=== PATIENT | male | born 1985 | race Caucasian/White ===

== ENCOUNTER 2023-10-06 15:11 | Observation (INO) ==
--- NOTE | 2023-10-06 15:44 | ED Triage Note ---
Date of Service October 06, 2023 Provider in Triage Author: Charles Seay History of Present Illness This patient was briefly evaluated while in triage. An abbreviated physical exam was performed. This patient is a 38-year-old Male who presents to the ED for evaluation of bloody vomitus. Patient reports he did not feel well this morning when he woke up, and became nauseated. Patient went to the bathroom and vomited in the sink, having multiple blood clots. Patient had a small glass of wine last night. He has also taken a few ibuprofen recently for neck pain. Patient denies history of reflux. Physical Exam CONSTITUTIONAL: Healthy and well nourished. HEENT: No scleral icterus or conjunctival injection/pallor. RESPIRATORY: Clear to auscultation bilaterally with no wheezing, crackles, rhonchi or stridor. CARDIOVASCULAR: Regular rate and rhythm with no murmurs, rubs or gallops. GASTROINTESTINAL: No epigastric tenderness to palpation. Bowel sounds are present. MUSCULOSKELETAL: Full range of motion of all joints without discomfort. INTEGUMENTARY: No rash or other significant dermatologic conditions noted. HEMATOLOGIC: No ecchymosis or petechiae. PSYCHIATRIC: Positive affect. NEUROLOGIC: No focal neurologic deficits noted. Initial orders for labs and / or imaging were placed and patient was placed in the waiting area until a bed is available. Please see further documentation for the full ED course.
[2023-10-06] MEDS ORDERED: PANTOprazole 80 MG in DEXTROSE 5% 100 ML IV STA (16:05)
[2023-10-06] MEDS ORDERED: FAMOTIDINE 20MG IV PUSH 20 MG/5 ML SYR IV STA (16:06)
[2023-10-06] MEDS ORDERED: SODIUM CHLORIDE 0.9% 1,000 ML IV SCH (16:15)
[2023-10-06 16:30] LABS: Albumin Globulin Ratio 1.6 (0.9-2); Albumin Level 4.4 gm/dl (3.4-5.0); BUN Creatinine Ratio 24.7 (10-20); Bilirubin,Total 1.2 mg/dl (0.2-1.0); Calcium 9.4 mg/dl (8.6-10.3); Est GFR (African American) 136.4 ml/min; Est GFR (Non-African American) 117.7 ml/min; Globulin 2.7 gm/dl (2.5-4.0); Total Protein 7.1 gm/dl (6.0-8.3)
[2023-10-06 16:31] LABS: Hematocrit (blood only) 41.9 % (42.0-52.0); Hemoglobin 14.6 g/dl (14.0-18.0)
[2023-10-06 16:32] LABS: Mean Corpuscular Hgb Conc 34.8 g/dL (32.0-36.0); RDW Coefficient of Variation 14.6 % (11.5-14.5); RDW Standard Deviation 46.2 fL (36.4-46.3); Red Blood Count 4.87 M/uL (4.70-6.10); White Blood Count 5.93 K/ul (4.8-10.8)
[2023-10-06 16:36] LABS: Basophils # (auto) 0.05 K/uL (0.00-0.20); Basophils % (auto) 0.8 %; Echinocytes 2+; Eosinophils # (auto) 0.15 K/uL (0.00-0.50); Eosinophils % (auto) 2.5 %; Immature Granulocytes # (auto) 0.02 K/uL (0.01-0.20); Immature Granulocytes % (auto) 0.3 %; Lymphocytes # (auto) 1.32 K/uL (1.20-3.40); Lymphocytes % (auto) 22.3 %; Monocytes # (auto) 0.65 K/uL (0.11-0.59); Neutrophils # (auto) 3.74 K/uL (1.40-6.50); Neutrophils % (auto) 63.1 %; Platelet Count 93 K/uL (130-400); Platelet Estimate Decreased (Normal)
[2023-10-06 16:37] LABS: Troponin I High Sensitivity 2.6 pg/ml (0-20)
[2023-10-06 16:40] LABS: INR 1.2 (0.9-1.1); Partial Thromboplastin Time 28 Seconds (21-31)
--- NOTE | 2023-10-06 16:58 | Emergency Department Note ---
Impression & Plan Hematemesis ED Provider Note CHIEF COMPLAINT: Vomiting blood HISTORY OF PRESENT ILLNESS: This 38-year-old male patient on chronic buprenorphine presents to the emergency department with complaints of vomiting blood. The patient states he went to bed in his usual state of health, woke up nauseated earlier this morning. He proceeded to have a loose bowel movement, but does not have any recollection of the color of the stool. He was able to go back to bed for a few hours. Upon awakening around 10 to 11 AM, he suddenly felt nauseated and states his mouth began to water. He rushed to the sink and vomited bright red blood with clots. He denies any blood thinners, states he had 1 glass of wine last night but does not drink regularly. He has been taking ibuprofen for the last several days. REVIEW OF SYSTEMS: A review of systems was performed with positives and pertinent negatives listed in the history of present illness. 10 systems were reviewed and are otherwise negative. ALLERGIES: see below MEDICATIONS: see below PMH: see below SOCIAL HISTORY: see below DDx: Gastric ulcer, esophageal tear, malignancy, cirrhosis of the liver, infectious etiology, esophageal varices, NSAID use, dehydration among others PHYSICAL EXAM: Vital signs reviewed. General: Well-appearing 38-year-old male, in no significant distress. HEENT: No scleral icterus, PERRLA, neck supple. Moist mucous membranes Cardiovascular: Regular rate and rhythm, no extra sounds. Pulmonary: Clear to auscultation bilaterally, normal work of breathing. Abdomen: Soft, nontender, nondistended, positive bowel sounds. Musculoskeletal: Atraumatic, no peripheral edema. Rectal: Guaiac positive brown stool normal external mucosa. No mass appreciated Neurologic: Patient awake alert and oriented x 3, speech is clear Skin: Warm, dry, no rash EMERGENCY DEPARTMENT COURSE/MDM: This patient was evaluated and appeared to be in no significant distress. IV access was obtained and laboratory work was drawn. The patient was placed on the quality assurance monitor chassis and noted to be in a normal sinus rhythm. Stool guaiac is positive. Patient was started on IV Protonix bolus and drip. He was typed and screened. IV fluids were initiated. The patient was felt to be stable with normal vital signs and initial hemoglobin of 14.6. Patient did show a picture of gross hematemesis with clotting. He will be best served with an inpatient admission. Hospitalist service was consulted for further management. Patient is aware of the plan and agrees. MONITORING: An order for cardiac monitoring was placed and the patient is noted to be in a normal sinus rhythm at 75 beats per minute. RADIOLOGY: Chest x-ray to my interpretation reveals no evidence of focal lung consolidation or failure. DISPOSITION: Admission Past Med/Surg History Medical History Tobacco use disorder History of substance abuse Social History Smoking Status: Current every day smoker Tobacco Type: Cigarettes Hx Alcohol Use: Yes Alcohol type: wine Hx Substance Use: Yes Last Used Substance Other:: 6-7 years ago Communication Ability: Effective Beliefs That Will Affect Care: None marital status: Life Partner Current Living Situation: Significant Other Feels Safe at Home: Yes Assistive Devices: None Allergies Allergies Allergy/AdvReac Type Severity Reaction Status Date / Time No Known Allergies Allergy Verified 10/07/23 14:08 Home Meds Home Medications Medication Instructions Recorded Confirmed buprenorphine HCl 8 mg sublingual 8 mg sublingual BID 10/06/23 10/06/23 tablet Previous Rx's Medication Instructions Recorded pantoprazole 40 mg tablet,delayed 40 mg PO BID 30 days #60 tabs 10/07/23 release Results & Data (ED) Vital Signs Vital Signs - 24 hr 10/06/23 15:40 10/06/23 16:00 10/06/23 16:30 Temperature 36.8 C Temperature Source Temporal Artery Scan Pulse Rate 102 H 78 Pulse Rate [Left Apical] 83 Respiratory Rate 18 16 17 Respiratory Effort / Characteristics Non-Labored Spontaneous Non-Labored Respiratory Depth Normal Normal Respiratory Pattern Regular Blood Pressure 124/83 122/75 Blood Pressure [Right Arm] 107/72 Blood Pressure Mean 96 90 Blood Pressure Mean [Right Arm] 83 Pulse Oximetry 97 99 100 Oxygen Delivery Method Room Air Room Air Room Air Sepsis Recent Fever Within 48 Hours No Sepsis New/Unexplained Change in Mental Status N/A Sepsis Action Taken by Nursing No Action Required 10/06/23 16:36 Temperature Temperature Source Pulse Rate 75 Pulse Rate [Left Apical] Respiratory Rate Respiratory Effort / Characteristics Respiratory Depth Respiratory Pattern Blood Pressure Blood Pressure [Right Arm] Blood Pressure Mean Blood Pressure Mean [Right Arm] Pulse Oximetry Oxygen Delivery Method Sepsis Recent Fever Within 48 Hours Sepsis New/Unexplained Change in Mental Status Sepsis Action Taken by Usp Medications Current Medication List: was personally reviewed by me Laboratory Data Attestation: I reviewed the patient's lab results. 10/07/23 09:45 10/07/23 06:23 Lab Results 10/06/23 10/06/23 10/06/23 Range/Units 15:56 16:25 16:58 WBC 5.93 (4.8-10.8) K/ul RBC 4.87 (4.70-6.10) M/uL Hgb 14.6 (14.0-18.0) g/dl Hct 41.9 L (42.0-52.0) % MCV 86.0 (80.0-100.0) fL MCH 30.0 (25.0-34.0) pg MCHC 34.8 (32.0-36.0) g/dL RDW Std Deviation 46.2 (36.4-46.3) fL RDW Coeff of Deborah 14.6 H (11.5-14.5) % Plt Count 93 L (130-400) K/uL MPV 9.0 L (9.4-12.4) fL Immature Gran % (Auto) 0.3 % Neut % (Auto) 63.1 % Lymph % (Auto) 22.3 % [place] % (Auto) 11.0 % Eos % (Auto) 2.5 % Baso % (Auto) 0.8 % Neut # (Auto) 3.74 (1.40-6.50) K/uL Lymph # (Auto) 1.32 (1.20-3.40) K/uL [place] # (Auto) 0.65 H (0.11-0.59) K/uL Eos # (Auto) 0.15 (0.00-0.50) K/uL Baso # (Auto) 0.05 (0.00-0.20) K/uL Immature Gran # (Auto) 0.02 (0.01-0.20) K/uL Platelet Estimate Decreased L (Normal) Echinocytes 2+ PT 13.0 H (9.0-12.0) Seconds INR 1.2 H (0.9-1.1) APTT 28 (21-31) Seconds PTT Ratio 1.0 Sodium 138 (136-145) mmol/L Potassium 4.0 (3.5-5.1) mmol/L Chloride 105 (98-107) mmol/L Carbon Dioxide 26 (21-32) mmol/L Anion Gap 7 (3-11) BUN 18 (6-23) mg/dl Creatinine 0.73 (0.6-1.4) mg/dl Est Cr Clr Drug Dosing 119.0 ml/min Est GFR ( Amer) 136.4 ml/min Est GFR (Non-Af Amer) 117.7 ml/min BUN/Creatinine Ratio 24.7 H (10-20) Glucose 100 H (70-99(Fasting)) mg/dl Calcium 9.4 (8.6-10.3) mg/dl Total Bilirubin 1.2 H (0.2-1.0) mg/dl AST 66 H (13-39) U/L ALT 67 H (7-52) U/L Alkaline Phosphatase 53 (34-104) U/L Troponin I High Sens 2.6 (0-20) pg/ml Total Protein 7.1 (6.0-8.3) gm/dl Albumin 4.4 (3.4-5.0) gm/dl Globulin 2.7 (2.5-4.0) gm/dl Albumin/Globulin Ratio 1.6 (0.9-2) Lipase 33 (11-82) U/L Urine Color Yellow Urine Appearance Clear (Clear) Urine pH 7.0 (4.5-7.5) Ur Specific Mobile 1.010 (1.000-1.030) Urine Protein Negative (Negative) Urine Glucose (UA) Negative (Negative) Urine Ketones Negative (Negative) Urine Blood Trace-intact H (Negative) Urine Nitrite Negative (Negative) Urine Bilirubin Negative (Negative) Urine Urobilinogen Negative (Negative) Ur Leukocyte Esterase Negative (Negative) Urine RBC 0-4 (0-4) /hpf Urine WBC 0-5 (0-5) /hpf Ur Epithelial Cells 0-5 (0-5) /lpf Urine Bacteria Negative (Negative) Hyaline Casts 0-5 (0-5) /lpf Blood Type A Positive Antibody Screen NEGATIVE Administered Medications Discontinued Medications Buprenorphine HCl (Buprenorphine Hcl 8 Mg Subl) 8 mg SL BID [facility] Stop: 11/06/23 08:59 Last Admin: 10/07/23 16:30 Dose: 8 mg Documented By: [facility] Admin: 10/07/23 09:15 Dose: Not Given Documented By: [facility] Pantoprazole Sodium 80 mg/ (Dextrose) 120 mls @ 480 mls/hr IV ONE STA Stop: 10/06/23 16:19 Last Infusion: 10/06/23 16:40 Dose: Infused Documented By: [facility] Admin: 10/06/23 16:16 Dose: 480 mls/hr Documented By: IRVING Sodium Chloride (Nss) 1,000 mls @ 150 mls/hr IV .Q6H40M FREDI Stop: 11/05/23 16:14 Last Infusion: 10/06/23 22:18 Dose: Infused Documented By: [facility] Infusion: 10/06/23 21:00 Dose: 0 mls/hr Documented By: [facility] Admin: 10/06/23 16:15 Dose: 150 mls/hr Documented By: IRVING Famotidine (Pepcid 20mg Iv Push) 20 mg in 5 mls @ 2.5 mls/min IV NOW STA Stop: 10/06/23 16:07 Last Admin: 10/06/23 16:16 Dose: 2.5 mls/min Documented By: IRVING Pantoprazole Sodium 40 mg/ (Dextrose) 100 mls @ 20 mls/hr IV Q5H [facility] Stop: 11/05/23 17:14 Last Infusion: 10/07/23 15:23 Dose: Infused Documented By: [facility] Admin: 10/07/23 12:52 Dose: 8 mg/hr, 20 mls/hr Documented By: [facility] Infusion: 10/07/23 12:52 Dose: Infused Documented By: [facility] Admin: 10/07/23 07:57 Dose: 8 mg/hr, 20 mls/hr Documented By: [facility] Infusion: 10/07/23 07:57 Dose: Infused Documented By: [facility] Admin: 10/07/23 03:18 Dose: 8 mg/hr, 20 mls/hr Documented By: [facility] Infusion: 10/07/23 03:18 Dose: Infused Documented By: [facility] Admin: 10/06/23 22:41 Dose: 8 mg/hr, 20 mls/hr Documented By: [facility] Infusion: 10/06/23 22:41 Dose: Infused Documented By: [facility] Admin: 10/06/23 18:07 Dose: 8 mg/hr, 20 mls/hr Documented By: MEHRAN Lactated Ringer's (Lr) 1,000 mls @ 125 mls/hr IV .Q8H [facility] Stop: 11/05/23 19:59 Last Admin: 10/07/23 12:54 Dose: 125 mls/hr Documented By: Infusion: 10/07/23 12:54 Dose: Infused Documented By: Admin: 10/07/23 05:43 Dose: 125 mls/hr Documented By: Infusion: 10/07/23 05:00 Dose: Infused Documented By: Admin: 10/06/23 21:00 Dose: 125 mls/hr Documented By: KARLA Lidocaine HCl (Lidocaine 2% 2 Ml Vial/Amp(20mg/Ml)) Confirm Administered Dose 2 ml INFIL .STK-MED ONE Stop: 10/07/23 14:49 Last Admin: 10/07/23 16:09 Dose: Not Given Documented By: SHARRI Midazolam HCl (Midazolam Hcl 1 Mg/Ml 2ml Vial) Confirm Administered Dose 2 mg .ROUTE .STK-MED ONE Stop: 10/07/23 14:53 Last Admin: 10/07/23 16:09 Dose: Not Given Documented By: SHARRI Miscellaneous (Remove Nicoderm Patch) 1 each N/A DAILY@0859 [facility] Stop: 11/06/23 08:58 Last Admin: 10/07/23 07:59 Dose: 1 each Documented By: SHARRI Nicotine (Nicotine 14 Mg/24 Hr Patch) 14 mg TD QAM [facility] Stop: 11/05/23 22:00 Last Admin: 10/07/23 07:59 Dose: 14 mg Documented By: Admin: 10/06/23 22:40 Dose: 14 mg Documented By: EDOUARD Ondansetron HCl (Ondansetron Inj 2 Mg/Ml 2 Ml Vial) Confirm Administered Dose 4 mg .ROUTE .STK-MED ONE Stop: 10/07/23 14:49 Last Admin: 10/07/23 16:09 Dose: Not Given Documented By: SHARRI Propofol (Propofol Iv Emulsion 10 Mg/Ml 20 Ml Vial) Confirm Administered Dose 200 mg IV .STK-MED ONE Stop: 10/07/23 14:49 Last Admin: 10/07/23 16:09 Dose: Not Given Documented By: SHARRI Imaging Data Radiologist's Impression: Chest X-Ray 10/06/23 18:57 XR chest 1V portable CLINICAL HISTORY: hematemesis ?air under diaphragm TECHNIQUE: Single frontal radiograph of the chest was obtained. Comparison: None available at the time of this dictation. FINDINGS: No lines and tubes are seen. The cardiomediastinal silhouette is normal. The lungs are clear. No evidence of pleural effusion or pneumothorax. IMPRESSION: No acute chest disease. ACT 112: Negative or not required by law. Electronically signed by: Lico Quach M.D. 10/06/2023 7:59 PM Liver Ultrasound 10/06/23 19:01 Exam(s): US LIVER EXAM: US Abdomen Limited CLINICAL HISTORY: Reason for exam: decreased platelets, elevated LFTs ?liver cirrhosi. TECHNIQUE: Real-time ultrasound of the abdomen with image documentation. COMPARISON: No relevant prior studies available. FINDINGS: Liver: 0.7 x 0.8 cm left hepatic lobe hyperechoic nodule. Common bile duct: Common bile duct wall measures 3.3 cm. IMPRESSION: No acute findings in the visualized abdomen. Electronically signed by: Werner Roy MD 10/07/23 00:51 AM Discharge Plan Visit Data Chief Complaint: Vomiting Stated Complaint: VOMITING BLOOD/CLOTS ED Provider: Daly Pagan Discharge Problem: Hematemesis Patient Disposition: Admitted As Inpatient Condition: Good Discharge Instructions Interventions: ED Discharge Assessment Last Done: 10/06/23 21:41 Discharge Problem: Hematemesis Qualifiers: Nausea presence: with nausea Qualified Code(s): K92.0 - Hematemesis
[2023-10-06 17:13] LABS: Appearance Urine Clear (Clear); Bilirubin Urine Negative (Negative); Blood Urine Trace-intact (Negative); Color Urine Yellow; Glucose Urine UA Negative (Negative); Ketones Urine Negative (Negative); Leukocyte Esterase Urine Negative (Negative); Nitrite Urine Negative (Negative); Protein Urine Negative (Negative); Urobilinogen Urine Negative (Negative)
[2023-10-06 17:23] LABS: Bacteria Urine Negative (Negative); Epithelial Cell Urine 0-5 /lpf (0-5); Hyaline Casts Urine 0-5 /lpf (0-5); RBC Urine 0-4 /hpf (0-4); WBC Urine 0-5 /hpf (0-5)
[2023-10-06] MEDS: PANTOprazole 40 MG in DEXTROSE 5% MINI-B 100 ML IV SCH ×2 (18:07→22:41)
--- NOTE | 2023-10-06 19:06 | History & Physical Report ---
Date of Service October 06, 2023 Assessment & Plan (1) Hematemesis: Plan: Q.6 hourly H&H. Transfusion threshold overnight less than 9 as this would indicate ongoing acute hemorrhage Pantoprazole IV bolus and drip Add octreotide and ceftriaxone if any concern for liver cirrhosis on ultrasound Consult gastroenterology (2) Thrombocytopenia: Plan: Unclear cause on admission. ?DITP due to ibuprofen - no coag changes of concern for DIC (will continue to monitor) US liver as below Monitor plt daily (3) Transaminitis: Plan: Follow-up hepatitis panel ordered by ER Ultrasound liver ordered (4) Tobacco use disorder: Plan: Nicotine patch ordered (5) History of substance abuse: Plan: Prior opiate pain killer use Continue buprenorphine pending stability of hemoglobin - on this for 6-7 years Plan VTE prophylaxis - SCDs Diet - NPO Disposition - observation to med/tele Admission and Anticipated Discharge Date Admission Date: October 06, 2022 History of Present Illness Chief Complaint: Hematemesis Primary Care Provider: NO PCP Rd Majano is a 38-year-old male who presents to the ER with hematemesis. Started about 7 AM this morning when he woke up felt sick to the stomach. He had a large bowel movement, felt better and went back to bed at 7:30. He woke up again around 11 AM feeling fine initially however around 2 to 2:30 PM again felt sick to his stomach and at this time started vomiting initially coffee-ground emesis but tended to bright red blood containing clots. He vomited 4-5 times before he felt like his stomach is empty. His drove him to the ER. He has never had any heartburn, stomach ulcers, gastrointestinal bleeds previously. He smokes 1 pack a day. The last 2 days he has been taking ibuprofen (total 1000 mg 2 days ago and 800 mg yesterday). He also drank a small glass of wine last night and does not normally drink alcohol. Allergies Allergy/AdvReac Type Severity Reaction Status Date / Time No Known Allergies Allergy Unverified 10/06/23 16:48 Home Medications Medication Instructions Recorded Confirmed Type buprenorphine HCl 8 mg sublingual 8 mg sublingual BID 10/06/23 10/06/23 History tablet Past Med/Surg History Medical History Tobacco use disorder History of substance abuse Social History Smoking Status: Current every day smoker Tobacco Type: Cigarettes marital status: Life Partner Feels Safe at Home: Yes Review of Systems Review of Systems: All systems reviewed & are unremarkable except as noted in HPI & below Physical Exam Constitutional: WD/WN, vitals as above Eyes: PERRL, conjunctivae normal, anicteric sclerae ENMT: external ear and nose normal, oropharynx normal Respiratory: normal respiratory effort, lungs clear to auscultation Cardiovascular: RRR, no murmur, no edema Gastrointestinal (Abdomen): normal bowel sounds, soft, nontender, no hepatosplenomegaly Skin: no rashes, warm and dry Neurologic: moves all extremities and awake; not confused Psychiatric: A+Ox3, euthymic affect Results & Data Results & Data Vital Signs (Past 12 Hours) Vital Signs Temp Pulse Pulse Resp BP BP Pulse Ox 10/06/23 17:00 74 20 129/67 99 10/06/23 16:36 75 10/06/23 16:30 78 17 122/75 100 10/06/23 16:00 83 16 107/72 99 10/06/23 15:40 36.8 C 102 H 18 124/83 97 O2 Del Method 10/06/23 17:00 Room Air 10/06/23 16:36 10/06/23 16:30 Room Air 10/06/23 16:00 Room Air 10/06/23 15:40 Room Air Laboratory Results Abnormal lab results 10/06/23 10/06/23 Range/Units 15:56 16:58 Hct 41.9 L (42.0-52.0) % RDW Coeff of Deborah 14.6 H (11.5-14.5) % Plt Count 93 L (130-400) K/uL MPV 9.0 L (9.4-12.4) fL [place] # (Auto) 0.65 H (0.11-0.59) K/uL Platelet Estimate Decreased L (Normal) PT 13.0 H (9.0-12.0) Seconds INR 1.2 H (0.9-1.1) BUN/Creatinine Ratio 24.7 H (10-20) Glucose 100 H (70-99(Fasting)) mg/dl Total Bilirubin 1.2 H (0.2-1.0) mg/dl AST 66 H (13-39) U/L ALT 67 H (7-52) U/L Urine Blood Trace-intact H (Negative) Diagnostic Findings XR chest 1V portable CLINICAL HISTORY: hematemesis ?air under diaphragm TECHNIQUE: Single frontal radiograph of the chest was obtained. Comparison: None available at the time of this dictation. FINDINGS: No lines and tubes are seen. The cardiomediastinal silhouette is normal. The lungs are clear. No evidence of pleural effusion or pneumothorax. IMPRESSION: No acute chest disease. Medications Administered ER medications given: Pantoprazole 80 mg IV bolus and 8 mg/h drip Code Status & VTE Plan Code Status Full VTE Prophylaxis Plan VTE Prophylaxis will be ordered: No Reason for no VTE drug order: Contraindicated PG Care Time/CCT Total # of Minutes Spent Total Time Spent with Patient: Total time spent is greater than 50% in coordination of care (as documented) at patient's floor/unit and/or counseling patient: Coding Level of Care Code 17419 INT INP/OBS CARE 2/55MIN Diagnoses Hematemesis K92.0 Thrombocytopenia D69.6 Transaminitis R74.01 Tobacco use disorder F17.200 History of substance abuse F19.11
--- NOTE | 2023-10-06 20:00 | XRay Report ---
XR chest 1V portable CLINICAL HISTORY: hematemesis ?air under diaphragm TECHNIQUE: Single frontal radiograph of the chest was obtained. Comparison: None available at the time of this dictation. FINDINGS: No lines and tubes are seen. The cardiomediastinal silhouette is normal. The lungs are clear. No evid ence of pleural effusion or pneumothorax. IMPRESSION: No acute chest disease. ACT 112: Negative or not required by law. Electronically signed by: Lico Quach M.D. 10/06/2023 7:59 PM
[2023-10-06] MEDS: LACTATED RINGER'S 1,000 ML IV SCH (21:00)
[2023-10-06] MEDS ORDERED: ACETAMINOPHEN 1,000 MG/100 ML VIAL IV PRN (22:01)
[2023-10-06] MEDS ORDERED: ONDANSETRON INJ 2 MG/ML 2 ML VIAL IV PRN (22:01)
[2023-10-06] MEDS: NICOTINE 14 MG/24 HR PATCH TD SCH (22:40)
[2023-10-06 23:20] LABS: Hematocrit (blood only) 38.8 % (42.0-52.0); Hemoglobin 13.5 g/dl (14.0-18.0)
--- NOTE | 2023-10-07 00:52 | Ultrasound Report ---
Exam(s): US LIVER EXAM: US Abdomen Limited CLINICAL HISTORY: Reason for exam: decreased platelets, elevated LFTs ?liver cirrhosi. TECHNIQUE: Real-time ultrasound of the abdomen with image documentation. COMPARISON: No relevant prior studies available. FINDINGS: Liver: 0.7 x 0.8 cm left hepatic lobe hyperechoic nodule. Common bile duct: Common bile duct wall measures 3.3 cm. IMPRESSION: No acute findings in the visualized abdomen. Electronically signed by: Werner Roy MD 10/07/23 00:51 AM
[2023-10-07] MEDS: PANTOprazole 40 MG in DEXTROSE 5% MINI-B 100 ML IV SCH ×3 (03:18→12:52)
[2023-10-07] MEDS: LACTATED RINGER'S 1,000 ML IV SCH ×2 (05:43→12:54)
[2023-10-07 07:28] LABS: Albumin Globulin Ratio 1.9 (0.9-2); Albumin Level 3.8 gm/dl (3.4-5.0); Bilirubin,Total 1.5 mg/dl (0.2-1.0); Calcium 9.4 mg/dl (8.6-10.3); Est GFR (Non-African American) 124.2 ml/min; Potassium 3.9 mmol/L (3.5-5.1); Total Protein 5.8 gm/dl (6.0-8.3)
[2023-10-07 07:48] LABS: INR 1.2 (0.9-1.1); Partial Thromboplastin Time 29 Seconds (21-31); Prothrombin Time 13.3 Seconds (9.0-12.0)
[2023-10-07] MEDS: NICOTINE 14 MG/24 HR PATCH TD SCH (07:59)
--- NOTE | 2023-10-07 08:07 | Hospitalist Progress Note ---
Date of Service October 07, 2023 Assessment & Plan (1) Hematemesis: Plan: Hemoglobin 14.6 to 12.6 over the past 24 hours. Q.6 hourly H&H. Pantoprazole IV bolus and drip Consult gastroenterology; plan for EGD today (2) Thrombocytopenia: Plan: Unclear cause on admission. ?DITP due to ibuprofen - no coag changes of concern for DIC (will continue to monitor) US liver with 0.7 x 0.8 cm left hepatic lobe hyperechoic nodule. Monitor plt daily (3) Transaminitis: Plan: Follow-up hepatitis panel ordered by ER Ultrasound liver as per above Continue to trend (4) Tobacco use disorder: Plan: Nicotine patch ordered (5) History of substance abuse: Plan: Prior opiate pain killer use Continue buprenorphine pending stability of hemoglobin - on this for 6-7 years Plan VTE prophylaxis - SCDs Diet - NPO pending GI consult Admission and Anticipated Discharge Date Admission Date: October 06, 2023 Subjective Pt seen at bedside this morning. Overall doing well. No further episodes of hematemesis. Denies nausea, abdominal pain, melena. Had a BM this morning. Review of Systems Review of Systems: As per above Physical Exam Physical Exam: Constitutional: well-appearing, no acute distress HEENT: NCAT, no conjunctival injection CV: regular rhythm, no murmur appreciated, extremities well-perfused, no LE edema Resp: CTABL, no wheezes/rales/rhonchi appreciated, no increased work of breathing GI: soft, nondistended, nontender, BS normoactive MSK: no gross deformities appreciated Skin: warm, dry, no rash appreciated Neuro: alert, oriented, no focal neurologic deficit appreciated Results & Data Results & Data Vital Signs (Past 12 Hours) Vital Signs Temp Pulse Pulse Resp BP BP BP 10/07/23 07:23 36.7 C 76 18 119/66 10/07/23 03:27 37.2 C 83 18 115/49 L 10/07/23 00:44 10/06/23 22:10 37.2 C 73 18 122/69 10/06/23 22:01 37.2 C 73 18 122/69 10/06/23 21:30 79 15 10/06/23 20:59 69 16 121/66 10/06/23 20:27 68 Pulse Ox O2 Del Method 10/07/23 07:23 98 Room Air 01/29/24 03:27 98 Room Air 10/07/23 00:44 Room Air 10/06/23 22:10 98 Room Air 10/06/23 22:01 98 Room Air 10/06/23 21:30 98 Room Air 10/06/23 20:59 99 Room Air 10/06/23 20:27 Resident Activity Tracking Resident Involvement: Resident Care Provided Care Provided: Adult [facility] Medicine
[2023-10-07] MEDS: buprenorphine HCL 8 MG SUBL SL SCH ×2 (09:15→16:30)
--- NOTE | 2023-10-07 09:41 | Gastrointestinal Consultation ---
Date of Consultation October 07, 2023 Assessment & Plan (1) Hematemesis: Patient admitted with c/o of hematemesis that came on suddenly yesterday in the setting of ibuprofen use. hgb 13.5. Patient wishes to proceed with an EGD to further evaluate. Discussed case with Dr. Muhammda who advised on plan. - Will perform EGD today. - follow hgb/hct and transfuse as needed. - continue protonix drip. Supervising Physician Co-Signing Physician Notes Agree with IRAIDA Shukla as above Abd: Soft, NT, ND, +BS Continue current therapy and supportive care Proceed with EGD now History of Present Illness Reason for Consultation: hematemesis Requesting Physician: Ciro Vaughan MD Attending Physician: Werner Good DO History of Present Illness Patient is a 38 year old male who presented to the ED yesterday after he had about 5 episodes of significant hematemesis at home. He had some stomach pain earlier that day but it was resolved with moving his bowels. He did not appreciate any melena but admits he did not look at his stool. He tells me stool is at baseline. He tells me that in the 48 hours preceding this he had used a significant amount of ibuprofen for neck pain that he was having and he did have a glass of wine. He smokes 1 ppd. His hgb upon presentation was 14.6 and had dropped down to 13.5. Since admission he has not had any further vomiting. Patient denies any current issues with nausea, dysphagia, heartburn, abdominal pain, unintentional weight loss, or bright red blood per rectum. he has never had an EGD or Colonoscopy. Allergies Allergy/AdvReac Type Severity Reaction Status Date / Time No Known Allergies Allergy Verified 10/07/23 14:08 Home Medications Medication Instructions Recorded Confirmed Type buprenorphine HCl 8 mg sublingual 8 mg sublingual BID 10/06/23 10/06/23 History tablet Patient History Medical History Tobacco use disorder History of substance abuse Social History Smoking Status: Current every day smoker Tobacco Type: Cigarettes Hx Alcohol Use: Yes Alcohol type: wine Hx Substance Use: Yes Last Used Substance Other:: 6-7 years ago Communication Ability: Effective Beliefs That Will Affect Care: None marital status: Life Partner Current Living Situation: Significant Other Feels Safe at Home: Yes Assistive Devices: None Review of Systems Review of Systems: All systems reviewed & are unremarkable except as noted in HPI & below Physical Exam Constitutional: WD/WN, vitals as above Respiratory: normal respiratory effort, lungs clear to auscultation Cardiovascular: RRR, no murmur, no edema Gastrointestinal (Abdomen): normal bowel sounds, soft, nontender, no hepatosplenomegaly Skin: no rashes, warm and dry Psychiatric: Orientation: alert and oriented x 3 Affect: euthymic affect Results & Data Vital Signs (Past 12 Hours) Vital Signs Temp Pulse Resp BP BP Pulse Ox O2 Del Method 10/07/23 07:23 98.1 F 76 18 119/66 98 Room Air 10/07/23 03:27 99.0 F 83 18 115/49 L 98 Room Air 10/07/23 00:44 Room Air 10/06/23 22:10 99.0 F 73 18 122/69 98 Room Air 10/06/23 22:01 99.0 F 73 18 122/69 98 Room Air PG Care Time/CCT Total # of Minutes Spent Total Time Spent with Patient: Total time spent is greater than 50% in coordination of care (as documented) at patient's floor/unit and/or counseling patient: Coding Level of Care Code 42020 OFFICE CONSULT LVL M Diagnoses Hematemesis K92.0 Time Spent (min) 45
--- NOTE | 2023-10-07 09:46 | Electrocardiogram Report ---
Test Reason : Blood Pressure : / mmHG Vent. Rate : 066 BPM Atrial Rate : 066 BPM P-R Int : 142 ms QRS Dur : 098 ms QT Int : 436 ms P-R-T Axes : 060 049 030 degrees QTc Int : 457 ms Normal sinus rhythm RSR' or QR pattern in V1 suggests right ventricular conduction delay Borderline ECG No previous ECGs available Confirmed by Bernard Mccoy ([id number]) on 10/07/2023 9:45:28 AM Referred By: REFERRED SELF Confirmed By:Bernard Mccoy
[2023-10-07 10:01] LABS: Hematocrit (blood only) 36.2 % (42.0-52.0); Hemoglobin 12.6 g/dl (14.0-18.0)
--- NOTE | 2023-10-07 14:16 | Anesthesiology Consultation ---
Date of Service October 07, 2023 Assessment & Plan Chart Review Chart Review: Acceptable Risk for Surgery Consults Requested none ASA ASA3 Proposed Anesthesia Anesthesia Type: General and MAC Risk / Benefits Reviewed With: PT / POA / Parent / Guardian, Accepts Plan and Informed Consent Obtained History Surgery Operation Date: 10/07/23 17:15 Proposed Procedures p Esophagogastroduodenoscopy Dr Muhammad - Shon Muhammad, DO Height/Weight Height: 5 ft 11 in Weight: 63.7 kg Allergies Allergy/AdvReac Type Severity Reaction Status Date / Time No Known Allergies Allergy Verified 10/07/23 14:08 Medications Home Medications Medication Instructions Recorded Confirmed Last Taken buprenorphine HCl 8 mg sublingual 8 mg sublingual BID 10/06/23 10/06/23 10/06/23 tablet Active Medications Generic Name Dose Route Start Last Admin Trade Name Freq PRN Reason Stop Dose Admin Buprenorphine HCl 8 mg 10/07/23 09:00 10/07/23 09:15 Buprenorphine Hcl 8 Mg Subl SL 11/06/23 08:59 Not Given BID FREDI Pantoprazole Sodium 40 mg/ 100 mls @ 20 mls/hr 10/06/23 17:15 10/07/23 12:52 Dextrose IV 11/05/23 17:14 8 mg/hr Q5H FREDI 20 mls/hr Administration 8 MG/HR Lactated Ringer's 1,000 mls @ 125 mls/hr 10/06/23 20:00 10/07/23 12:54 Lr IV 11/05/23 19:59 125 mls/hr .Q8H FREDI Administration Miscellaneous 1 each 10/07/23 08:59 10/07/23 07:59 Remove Nicoderm Patch N/A 11/06/23 08:58 1 each DAILY@0859 FREDI Administration Nicotine 14 mg 10/06/23 22:01 10/07/23 07:59 Nicotine 14 Mg/24 Hr Patch TD 11/05/23 22:00 14 mg QAM FREDI Administration NPO Date Last Intake of Fluids: 10/06/23 Time Last Intake of Fluids: 00:00 Date Last Intake of Solids: 10/06/23 Time Last Intake of Solids: 00:00 Past Medical History Medical History Tobacco use disorder History of substance abuse Exercise / Class Metabolic Activity II 4-5 Yardwork/Stairs/Walk up hill Past Anesthesia History No Hx of Anesthesia Complications History of PONV No Hx of PONV Social History Smoking Status: Current every day smoker Hx Alcohol Use: Yes Alcohol type: wine alcohol intake frequency: a few times a month Hx Substance Use: Yes Last Used Substance Other:: 6-7 years ago Review of Systems ROS Unobtainable: All systems reviewed & are unremarkable except as noted in HPI & below Physical Exam Vital Signs Last Vital Signs Temp 36.9 C 10/07/23 11:33 Pulse 68 10/07/23 11:33 Resp 18 10/07/23 11:33 BP 111/64 10/07/23 11:33 Pulse Ox 99 10/07/23 11:33 O2 Del Method Room Air 10/07/23 11:33 ENMT Thyromental Distance: > or= 3.5 Finger Breadths Mallampati Class: II Respiratory normal respiratory effort Auscultation: lungs clear to auscultation bilaterally Cardiovascular Rate/Rhythm: regular rate and regular rhythm Psychiatric Orientation: alert and oriented x 3 Testing Laboratory Results 10/07/23 09:45 10/07/23 06:23 PT 13.3 Seconds (9.0-12.0) H 10/07/23 06:23 INR 1.2 (0.9-1.1) H 10/07/23 06:23 APTT 29 Seconds (21-31) 10/07/23 06:23 Urine Color Yellow 10/06/23 16:58 Urine Appearance Clear (Clear) 10/06/23 16:58 Urine pH 7.0 (4.5-7.5) 10/06/23 16:58 Ur Specific [place] 1.010 (1.000-1.030) 10/06/23 16:58 Urine Protein Negative (Negative) 10/06/23 16:58 Urine Glucose (UA) Negative (Negative) 10/06/23 16:58 Urine Ketones Negative (Negative) 10/06/23 16:58 Urine Nitrite Negative (Negative) 10/06/23 16:58 Ur Leukocyte Esterase Negative (Negative) 10/06/23 16:58 Urine RBC 0-4 /hpf (0-4) 10/06/23 16:58 Urine WBC 0-5 /hpf (0-5) 10/06/23 16:58 Ur Epithelial Cells 0-5 /lpf (0-5) 10/06/23 16:58 Blood Type A Positive 10/06/23 16:25 Antibody Screen NEGATIVE 10/06/23 16:25
[2023-10-07] MEDS ORDERED: ONDANSETRON INJ 2 MG/ML 2 ML VIAL IV PRN (14:17)
[2023-10-07] MEDS ORDERED: ATROPINE SULFATE 0.1 MG/ML 10ML SYR IV PRN (14:17)
[2023-10-07] MEDS ORDERED: ePHEDrine sulfate 50 MG/ML AMP IV PRN (14:17)
[2023-10-07] MEDS ORDERED: ONDANSETRON INJ 2 MG/ML 2 ML VIAL ONE (14:48)
[2023-10-07] MEDS ORDERED: PROPOFOL IV EMULSION 10 MG/ML 20 ML VIAL IV ONE (14:48)
[2023-10-07] MEDS ORDERED: LIDOCAINE 2% 2 ML VIAL/AMP(20MG/ML) INFIL ONE (14:48)
[2023-10-07] MEDS ORDERED: MIDAZOLAM HCL 1 MG/ML 2ML VIAL ONE (14:52)
--- NOTE | 2023-10-07 15:12 | GI REPORT ---
Patient Name: Rd Majano Procedure Date: 10/07/2023 2:48 PM Date of : 1985 Admit Type: Inpatient Age: 38 Gender: Male Attending MD: Shon Muhammad DO, Procedure: Upper GI endoscopy Providers: Shon Muhammad DO Referring MD: Werner Good Indications: Hematemesis Medicines: Monitored Anesthesia Care Complications: No immediate complications. Estimated Blood Loss: Estimated blood loss: none. Procedure: Pre-Anesthesia Assessment: - Prior to the procedure, a History and Physical was performed, and patient medications and allergies were reviewed. The patient's tolerance of previous anesthesia was also reviewed. The risks and benefits of the procedure and the sedation options and risks were discussed with the patient. All questions were answered, and informed consent was obtained. Prior Anticoagulants: The patient has taken no anticoagulant or antiplatelet agents. ASA Grade Assessment: III - A patient with severe systemic disease. After reviewing the risks and benefits, the patient was deemed in satisfactory condition to undergo the procedure. After obtaining informed consent, the endoscope was passed under direct vision. Throughout the procedure, the patient's blood pressure, pulse, and oxygen saturations were monitored continuously. The Endoscope was introduced through the mouth, and advanced to the second part of duodenum. The upper GI endoscopy was accomplished without difficulty. The patient tolerated the procedure well. Findings: The esophagus was normal. Diffuse moderate inflammation characterized by erosions and erythema was found in the entire examined stomach. Biopsies were taken with a cold forceps for histology. The examined duodenum was normal. Impression: - Normal esophagus. - Gastritis. Biopsied. - Normal examined duodenum. Recommendation: - Return patient to [facility] for ongoing care. - Advance diet as tolerated. - Continue present medications. - Return to primary care physician as previously scheduled. Shon Muhammad DO 10/07/2023 3:12:20 PM This report has been signed electronically. Note Initiated On: 10/07/2023 2:48 PM Number of Addenda: 0 I attest to the content of the Intraoperative Record and orders documented therein, exceptions below {[id number]}
--- NOTE | 2023-10-07 15:49 | Anesthesiology Progress Note ---
Date of Service October 07, 2023 Anesthesia Post Procedure Vital Signs Vital Signs: Temp Pulse Pulse Resp BP BP BP 10/07/23 15:43 77 16 114/78 10/07/23 15:29 78 16 117/76 10/07/23 15:14 88 16 113/65 10/07/23 14:10 36.6 C 70 16 131/75 10/07/23 11:33 36.9 C 68 18 111/64 10/07/23 07:23 36.7 C 76 18 119/66 10/07/23 03:27 37.2 C 83 18 115/49 L 10/07/23 00:44 10/06/23 22:10 37.2 C 73 18 122/69 10/06/23 22:01 37.2 C 73 18 122/69 10/06/23 21:30 79 15 10/06/23 20:59 69 16 121/66 10/06/23 20:27 68 10/06/23 19:10 71 14 10/06/23 19:00 118/88 10/06/23 18:30 70 15 108/63 10/06/23 18:00 71 14 114/64 10/06/23 17:00 74 20 129/67 10/06/23 16:36 75 10/06/23 16:30 78 17 122/75 10/06/23 16:00 83 16 107/72 Pulse Ox O2 Del Method 10/07/23 15:43 98 Room Air 10/07/23 15:29 98 Room Air 10/07/23 15:14 96 Room Air 10/07/23 14:10 99 Room Air 10/07/23 11:33 99 Room Air 10/07/23 07:23 98 Room Air 10/07/23 03:27 98 Room Air 10/07/23 00:44 Room Air 10/06/23 22:10 98 Room Air 10/06/23 22:01 98 Room Air 10/06/23 21:30 98 Room Air 10/06/23 20:59 99 Room Air 10/06/23 20:27 10/06/23 19:10 10/06/23 19:00 10/06/23 18:30 10/06/23 18:00 98 Room Air 10/06/23 17:00 99 Room Air 10/06/23 16:36 10/06/23 16:30 100 Room Air 10/06/23 16:00 99 Room Air Transfer of Care Handoff Completed per policy Notes Mental Status: alert / awake / arousable and participated in evaluation Nausea / Vomiting: adequately controlled Pain: adequately controlled Airway Patency, RR, SpO2: stable & adequate BP & HR: stable & adequate Hydration State: stable & adequate Anesthetic Complications: no major complications apparent and Pt Satisfied with anesthetic care
--- NOTE | 2023-10-07 16:39 | Discharge Summary ---
Date of Service October 07, 2023 Admission HPI Per Admitting Provider Rd Majano is a 38-year-old male who presents to the ER with hematemesis. Started about 7 AM this morning when he woke up felt sick to the stomach. He had a large bowel movement, felt better and went back to bed at 7:30. He woke up again around 11 AM feeling fine initially however around 2 to 2:30 PM again felt sick to his stomach and at this time started vomiting initially coffee-ground emesis but tended to bright red blood containing clots. He vomited 4-5 times before he felt like his stomach is empty. His drove him to the ER. He has never had any heartburn, stomach ulcers, gastrointestinal bleeds previously. He smokes 1 pack a day. The last 2 days he has been taking ibuprofen (total 1000 mg 2 days ago and 800 mg yesterday). He also drank a small glass of wine last night and does not normally drink alcohol. Principal Diagnosis Gastritis Discharge Exam Constitutional: well-appearing, no acute distress HEENT: NCAT, no conjunctival injection CV: regular rhythm, no murmur appreciated, extremities well-perfused, no LE edema Resp: CTABL, no wheezes/rales/rhonchi appreciated, no increased work of breathing GI: soft, nondistended, nontender, BS normoactive MSK: no gross deformities appreciated Skin: warm, dry, no rash appreciated Neuro: alert, oriented, no focal neurologic deficit appreciated Discharge Data Allergies Allergy/AdvReac Type Severity Reaction Status Date / Time No Known Allergies Allergy Verified 10/07/23 14:08 Consultations 10/06/23 18:57 ED Decision to Admit Stat 10/06/23 20:50 Consult Gastroenterology Routine Procedures Performed Operation Date: 10/07/23 17:15 Actual Procedures p EGD Biopsy Cytology - Shon Muhammad, DO Ordered Studies 10/06/23 19:01 US liver Stat Hospital Course (1) Gastritis: (1) Hematemesis secondary to gastritis: Initially hemoglobin 14.6, dropped to 12.6 EGD with gastritis, no acute bleeding Plan to continue PPI; 40mg BID Repeat CBC 10/09 F/u with PCP this week (2) Thrombocytopenia: Unclear cause on admission, but overall stable Will f/u as outpatient (3) Transaminitis: Follow-up hepatitis panel ordered by ER Ultrasound liver with Liver: 0.7 x 0.8 cm left hepatic lobe hyperechoic nodule. Common bile duct wall measures 3.3 cm. Downtrending; should repeat at PCP f/u (4) Tobacco use disorder: Nicotine patch ordered while impatient (5) History of substance abuse: Prior opiate pain killer use Continue buprenorphine - on this for 6-7 years (2) Tobacco use disorder: (3) History of substance abuse: (4) Transaminitis: (5) Hematemesis: (6) Thrombocytopenia: Total Time Total Time Spent Total Time Spent (In Minutes): <30 Discharge Plan Discharge Items Patient Disposition: Home - Self-Care Reason For Visit: HEMATEMESIS Discharge Diagnosis: Gastritis Condition on Discharge: Good Activity: Per Instructions section Non-emergency contact: Primary Care Provider Call non-emergency contact if: you have any medication questions Follow-up/Referrals: Kim Scott DO [Resident] - PCP,NO [Primary Care Provider] - Diet: Regular Ambulatory Orders: Complete Blood Count no Diff (Timed) Timeframe: 2 Days Location: Determined by Patient Ordered By: Kim Scott Add Attending Provider Instructions: You were admitted with concern for upper GI bleed. GI did an upper endoscopy that showed gastritis; inflammation in your stomach. In order to prevent further bleeding, we are going to start you on an acid suppression medication, pantoprazole. We sent a prescription to the pharmacy for this. You should take it twice a day. We would like you to get labs on Saturday (10/09) to ensure your blood count is still stable. We did note a low platelet count on your labs and while this is likely just an incidental finding on the labs which will resolve, you should follow it up with repeat labs with your primary care doctor. We would like you to follow up with primary care doctor this week. I will reach out to the [facility] Family Medicine office at [facility] to get you an appointment. They should reach out to you tomorrow with an appointment time. If you do not hear from them with in the next 2 days, please reach out to scheduled an appointment. The number for the office is [phone]. Pending Studies at Discharge: Yes Stand-Alone Forms: My [facility] [place], Smoking Cessation Medications and DC Order Prescriptions: New pantoprazole 40 mg Tablet,Delayed Release (Dr/Ec) 40 mg PO BID 30 Days Qty: 60 0RF Continued buprenorphine HCl 8 mg tablet, sublingual 8 mg SUBLINGUAL BID Discharge Orders: Discharge Order (Routine); Ordered 10/07/23 Ordered By: Kim Scott Admission Data Admit Date/Time: 10/06/23 19:05 Attending Provider: Werner Good Admit Provider: Ciro Vaughan Primary Care Provider: PCP,NO Other Providers: Ciro Vaughan; Osman Avilez Other Interventions: Discharge Summary Assessment (RN) Last Done: 10/07/23 17:39 Supervising Physician Co-Signing Physician Notes I personally examined the patient and verified all chirinos points of history and exam, discussed case, and agree with decision making with Dr Scott seen post EGD - feeling good would like to go home. d/w GI who are OK with plan for PPI/home pt notes PCP retired - lives in [place], but works in [employer] - happy to have [employer] PCP vitals noted nad heent nc at mmm breathing unlabored no accessory muscles good effort skin no rashes no pallor or icterus hematemesis due to gastritis (which was due to smoking/stress/nsaids) - with a mild degree of acute blood loss anemia (hgb 14.6 -> 12.6) - EGD showing gastritis, pt feels good. stable for home. BID PPI for now - getting set up with residency team for PCP - probably can wean PPI down over coming weeks, discussed avoiding NSAIDs. otherwise as above
--- NOTE | 2023-10-07 18:27 | Billing Data ---
Date of Service October 07, 2023 Coding Level of Care Code 47064 IN/OBS DISCH 30 MIN/LESS
[2023-10-07] MEDS ORDERED: PANTOprazole 40 MG TAB PO SCH (21:00)
[2023-10-10 16:37] LABS: HBSAG NON-REACTIVE (NON-REACTIVE); Hepatitis A Antibody IgM NON-REACTIVE (NON-REACTIVE); Hepatitis B Core Antibody IgM NON-REACTIVE (NON-REACTIVE)
[2023-10-11 10:17] LABS: Hepatitis C Vira RNA (Log) PCR 6.47 Log IU/mL (NOT DETECTED); Hepatitis C Viral RNA by PCR 2970000 IU/mL (NOT DETECTED)
== END 2023-10-07 17:56 | disposition home or self-care (01) ==
LOC: EDINP 15:11 → ED 15:11 → SUATTDRO 19:05 → 2N 21:41